=== PATIENT | female | born 1940 | race Asian ===

== ENCOUNTER → 2017-12-10 | Outpatient (CLI) | payer MEDICARE ==
[~2017-12-10] MED LIST: ALEN70TA43 PO; ASPI-1471 PO; CHOL10005 PO; DIPH-741 PO; EPIN0.3P15 IM; GLIM1TAB25 PO; LISI5TAB25 PO; LOSA50TA72 PO; METF-411 PO; METF-415 PO; METF500T4 PO; NABU-95 PO; PANT40TA65 PO; PNEI IJ; PNEU0.5D3 IM; PRED-420 PO; RIS150PT PO; SIMV-49 PO; TRI05T TP; TRIA15OI20 TP
[2017-12-10 09:57] LABS: PLATELET COUNT, AUTOMATED 207 K/uL (150-450)
[2017-12-10 10:18] LABS: LDL CHOLESTEROL 37 mg/dl
== END ==
LOC: LAB 09:28
PROVIDERS: ATTEND Internal Medicine
DX: R10.9 Unspecified abdominal pain (principal); E78.00 Pure hypercholesterolemia, unspecified; K76.0 Fatty (change of) liver, not elsewhere classified; E78.5 Hyperlipidemia, unspecified; I10 Essential (primary) hypertension; E11.9 Type 2 diabetes mellitus without complications; M81.0 Age-related osteoporosis without current pathological fracture
CPT/HCPCS: 36415; 81001; 82040; 82043; 82150; 82247; 82306; 82310; 82374; 82435; 82465; 82565; 82947; 83036; 83690; 83718; 84075; 84132; 84155; 84295; 84443; 84450; 84460; 84478; 84520; 85025

== ENCOUNTER → 2018-01-02 | Outpatient (CLI) | payer MEDICARE ==
[~2018-01-02] MED LIST changes: +IOPAMIDOL 76% 75 ML INFUS BTL 75 ML ONE
--- NOTE | 2018-01-02 14:32 | RADIOLOGY IMAGING REPORT ---
FACILITY: [facility] [place] PATIENT NAME: Josh Herndon : 1940 MR: [id number] V: [id number] EXAM DATE: ORDERING PHYSICIAN: DUNG AKHTAR TECHNOLOGIST: Location: [facility] Patient: Josh Herndon : 1940 Visit/Account:[id number] Date of Sevice: 01/02/2018 ABDOMEN/PELVIS W/WO CONTRAST HISTORY: abdominal pain TECHNIQUE: Axial images acquired through the abdomen/pelvis both with and without IV contrast.. Sergo nal and sagittal reformatting also performed. Dose Lowering Technique One of the following dose optimization techniques was utilized in the performance of this exam: Autom ated exposure control; adjustment of the mA and/or kV according to the patient's size; or use of an i terative reconstruction technique. Specific details can be referenced in the facility's radiology C T exam operational policy. CONTRAST: 75 mL Isovue-370 COMPARISON: Abdomen ultrasound June 28, 2016 FINDINGS: Visualized lung bases: Peribronchial thickening in the lower lobes, left more prominent than the rig ht. Reticular nodular changes are also seen in the lung bases, likely chronic Hepatobiliary: Left lobe of the liver appears prominent. The liver does not appear fatty replaced a t this time Spleen: Tiny accessory splenule Adrenals: Negative. Pancreas: Tail the pancreas appears to extend superior and medial to the spleen there is a soft tiss ue density process that appears contiguous with the tail which could represent direct extension of th e tail the pancreas. An adjacent or Exophytic mass not excluded Kidneys ureters and bladder: 4.2 cm cyst projects from the lower pole of the left kidney. Additional subcentimeter hypodensities in the kidneys may represent additional cysts although are too small to characterize Genitalia: Atrophic retroverted uterus. The endometrium appears thickened at 14 mm which is abnorma l for postmenopausal woman. GI: Negative. Vessels/spaces/nodes: Negative. Bones/soft tissues: Mild spondylotic changes lumbar spine Additional findings: None pertinent. IMPRESSION: Peribronchial thickening and reticular nodular changes in the lung bases, likely chronic although cli nical correlation needed Liver does not appear fatty replaced this time. The left lobe does appear prominent The tail of pancreas appears to extend superior medial to the spleen. There is a soft tissue density process that it appears contiguous with the tail of the pancreas which could represent direct extens ion of the tail the pancreas although appears slightly heterogeneous and adjacent or exophytic mass n ot excluded. Atrophic retroverted uterus. The endometrium appears thickened at 14 mm which is abnormal for postme nopausal woman pelvic ultrasound are [employer] consultation recommended Report Dictated By: Sherrill Morales MD at 01/02/2018 2:15 PM Report E-Signed By: Sherrill Morales MD at 01/02/2018 2:26 PM WSN:[email or web address]
== END ==
LOC: CT 02:15
PROVIDERS: ATTEND Internal Medicine
DX: R91.8 Other nonspecific abnormal finding of lung field (principal); N85.8 Other specified noninflammatory disorders of uterus
CPT/HCPCS: 74178; Q9967

== ENCOUNTER → 2018-04-16 | Outpatient (CLI) | payer MEDICARE ==
[~2018-04-16] MED LIST changes: -IOPAMIDOL 76% 75 ML INFUS BTL 75 ML ONE; -LOSA50TA72 PO; +LOSA50TA74 PO; -METF-411 PO; -METF-415 PO; +METF-450 PO; +METF-451 PO
--- NOTE | 2018-04-17 08:43 | EKG ---
FACILITY: [facility] [place] PATIENT NAME: MARLENE REYES : [id number] MR: [id number] V: [id number] EXAM DATE: ORDERING PHYSICIAN: DUNG AKHTAR TECHNOLOGIST: ESVIN Silva Reason : Blood Pressure : / mmHG Vent. Rate : 073 BPM Atrial Rate : 073 BPM P-R Int : 160 ms QRS Dur : 084 ms QT Int : 422 ms P-R-T Axes : 080 074 060 degrees QTc Int : 464 ms Normal sinus rhythm Normal ECG No previous ECGs available Confirmed by DUNG AKHTAR ([id number]) on 04/17/2018 10:13:35 AM Referred By: SOB Confirmed By:DUNG AKHTAR
== END ==
LOC: RESP 15:49
PROVIDERS: ATTEND Internal Medicine
DX: Z02.9 Encounter for administrative examinations, unspecified (principal)

== ENCOUNTER → 2018-04-17 | Outpatient (CLI) | payer MEDICARE ==
[2018-04-17 09:26] LABS: PLATELET COUNT, AUTOMATED 225 K/uL (150-450)
[2018-04-17 09:44] LABS: LDL CHOLESTEROL 49 mg/dl
--- NOTE | 2018-04-17 14:03 | RADIOLOGY IMAGING REPORT ---
FACILITY: [facility] PATIENT NAME: Josh Herndon : 1940 MR: [id number] V: [id number] EXAM DATE: ORDERING PHYSICIAN: DUNG AKHTAR TECHNOLOGIST: Location: [facility] Patient: Josh Herndon : 1940 Visit/Account:[id number] Date of Sevice: 04/17/2018 CHEST PA AND LAT INDICATION: sob COMPARISON: None available FINDINGS: Heart size within normal limits. There is no focal infiltrate or lobar consolidation. There is no pneumothorax or pleural effusion. IMPRESSION: 1. No acute cardiopulmonary process. Report Dictated By: Nain Novoa at 04/17/2018 1:59 PM Report E-Signed By: Nain Novoa at 04/17/2018 1:59 PM WSN:[email or web address]
== END ==
LOC: LAB 09:01
PROVIDERS: ATTEND Internal Medicine
DX: R06.00 Dyspnea, unspecified (principal); E11.9 Type 2 diabetes mellitus without complications; R10.13 Epigastric pain; E78.49 Other hyperlipidemia
CPT/HCPCS: 36415; 71046; 81001; 82040; 82150; 82247; 82310; 82374; 82435; 82465; 82565; 82947; 83036; 83690; 83718; 83880; 84075; 84132; 84155; 84295; 84443; 84450; 84460; 84478; 84520; 85025

== ENCOUNTER → 2018-04-22 | Outpatient (CLI) | payer MEDICARE | LOC: US 02:31 | PROVIDERS: ATTEND Internal Medicine | DX: I50.30 Unspecified diastolic (congestive) heart failure (principal); R29.898 Other symptoms and signs involving the musculoskeletal system | CPT/HCPCS: 93306 ==

== ENCOUNTER → 2018-06-10 | Outpatient (CLI) | payer MEDICARE ==
[~2018-06-10] MED LIST changes: +BLOO-1318 ASDIRECTED; +BLOO-1318 MC; +MELO-205 PO; +REGADENOSON 0.4 MG/5 ML SYR ONE
--- NOTE | 2018-06-11 16:27 | RADIOLOGY IMAGING REPORT ---
FACILITY: [facility] PATIENT NAME: Josh Herndon : 1940 MR: [id number] V: [id number] EXAM DATE: ORDERING PHYSICIAN: DUNG AKHTAR TECHNOLOGIST: Location: [facility] Patient: Josh Herndon : 1940 Visit/Account:[id number] Date of Sevice: 06/10/2018 EXAMINATION: Single isotope SPECT imaging with regadenoson infusion and gated SPECT imaging. DATE OF EXAMINATION: June 10, 2018. DATE OF INTERPRETATION: June 10, 2018. REQUESTING PHYSICIAN: DUNG AKHTAR. INDICATION: The patient is a 77-year-old female evaluated for chest pain. PROCEDURE: After informed consent the patient received an intravenous injection of 11.9 mCi of Tc-99 m sestamibi followed at an appropriate time inteval by rest imaging. The patient then subsequently r eceived an intravenous infusion of 0.4 mg of regadenoson per protocol without complication. Resting heart rate was 68 bpm with a peak heart rate of 110 bpm. Blood pressure at rest was 145/ / and follo wing infusion was 123 / 63. Baseline EKG demonstrates normal. There were no EKG changes of ischemia following infusion. Symptoms were nonspecific. The patient then received an intravenous injection of 29.3 mCi of Tc-99m sestamibi followed by stress imaging. RAW DATA: Examination of the summed raw data revealed a good quality study. MYOCARDIAL PERFUSION: The tomographic images demonstrate normal perfusion throughout. GATED IMAGES: The gated images demonstrate normal wall motion and thickening. Calculated ejection fr action is 83%. IMPRESSION: 1. Normal EKG 2. Normal myocardial perfusion scan. 3. Normal LV systolic function; LVEF 83%. Report Dictated By: Demetrius Etienne at 06/11/2018 4:18 PM Report E-Signed By: Demetrius Etienne at 06/11/2018 4:23 PM WSN:[id number]
--- NOTE | 2018-06-11 17:10 | RT STRESS TEST REPORT ---
FACILITY: [facility] [place] PATIENT NAME: MARLENE REYES : [id number] MR: [id number] V: [id number] EXAM DATE: ORDERING PHYSICIAN: DUNG AKHTAR TECHNOLOGIST: Gwyn [employer] Time: 2018-06-10 09:47:06 Total Exercise Time: 00:01:00 Test Indications: CP/ Dyspnea Medications: Protocol: LEXISCAN Max HR: 110 BPM 76% of Pred: 144 BPM Max BP: 145/081 mmHG Max Work Load: 1.0 METS Impression No EKG changes to suggest ischemia Nuclear medicine report to follow Confirmed by DUNG AKHTAR ([id number]) on 06/11/2018 5:10:56 PM Referred By: Overread By: DUNG AKHTAR
== END ==
LOC: NUC 00:29
PROVIDERS: ATTEND Internal Medicine
DX: R06.00 Dyspnea, unspecified (principal); R07.9 Chest pain, unspecified
CPT/HCPCS: 78452; 93017; A9500; J2785

== ENCOUNTER → 2018-11-23 | Outpatient (CLI) | payer MEDICARE ==
[~2018-11-23] MED LIST changes: -LOSA50TA74 PO; +LOSA50TA80 PO; -REGADENOSON 0.4 MG/5 ML SYR ONE
[2018-11-23 09:47] LABS: PLATELET COUNT, AUTOMATED 182 K/uL (150-450)
[2018-11-23 10:12] LABS: LDL CHOLESTEROL 34 mg/dl
== END ==
LOC: LAB 09:28
PROVIDERS: ATTEND Internal Medicine
DX: E78.5 Hyperlipidemia, unspecified (principal); E11.9 Type 2 diabetes mellitus without complications; I10 Essential (primary) hypertension
CPT/HCPCS: 36415; 81001; 82040; 82043; 82247; 82310; 82374; 82435; 82465; 82565; 82947; 83036; 83718; 84075; 84132; 84155; 84295; 84443; 84450; 84460; 84478; 84520; 85025